=== PATIENT | female | born 2000 | race American Indian/Alaskan Native ===

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

== ENCOUNTER 2022-06-05 21:47 | Emergency (ER) | payer SELFPAY ==
[2022-06-05 22:39] VITALS: BP 113/74
[2022-06-05 23:16] LABS: Hematocrit 35.2 % (30.3-42.9); Hemoglobin 11.8 gm/dl (10.1-14.3); Mean Corpuscular HGB Conc 34 % (30-34); Mean Corpuscular Volume 91 fl (79-97); Platelet Count 265 K/mm3 (140-440); Red Blood Count 3.85 M/mm3 (3.65-5.03); Red Cell Distribution Width 14.2 % (13.2-15.2)
[2022-06-06 00:33] LABS: Color,Urine Yellow (Yellow)
[2022-06-06 00:34] LABS: Bilirubin,Urine Moderate (Negative); Blood,Urine Trace (Negative)
[2022-06-06 00:36] LABS: Ictotest,Urine Negative (Negative)
[2022-06-06 00:38] LABS: Mucus,Urine 3+ /HPF
[2022-06-06 01:53] LABS: Platelet Estimate Consistent w Auto; Total Cells Counted 100
== END 2022-06-05 22:05 | disposition left against medical advice (07) ==
LOC: ED 21:47
DX: O03.9 Complete or unspecified spontaneous abortion without complication (principal); Z53.21 Procedure and treatment not carried out due to patient leaving prior to being seen by health care provider; Z3A.00 Weeks of gestation of pregnancy not specified
CPT/HCPCS: 36415; 81001; 84702; 84703; 85007; 85025; 86900; 86901

== ENCOUNTER 2022-06-06 10:01 | Emergency (ER) | payer OTHER ==
[2022-06-06 14:40] LABS: Alanine Aminotransferase 5 units/L (7-56); Albumin 4.5 g/dL (3.9-5); Blood Urea Nitrogen 5 mg/dL (7-17); Calcium 9.1 mg/dL (8.4-10.2); Hemolysis Index 6
[2022-06-06 14:43] LABS: BUN/Creatinine Ratio 13
[2022-06-06 15:00] LABS: Basophils % (Auto) 0.7 % (0.0-1.8); Eosinophils # (Auto) 0.1 K/mm3 (0.0-0.4); Eosinophils % (Auto) 0.9 % (0.0-4.3); Hematocrit 35.4 % (30.3-42.9); Hemoglobin 12.4 gm/dl (10.1-14.3); Lymphocytes # (Auto) 1.7 K/mm3 (1.2-5.4); Lymphocytes % (Auto) 29.9 % (13.4-35.0); Mean Corpuscular HGB Conc 35 % (30-34); Mean Corpuscular Volume 91 fl (79-97); Monocytes # (Auto) 0.6 K/mm3 (0.0-0.8); Monocytes % (Auto) 10.1 % (0.0-7.3); Platelet Count 271 K/mm3 (140-440); Red Cell Distribution Width 13.9 % (13.2-15.2)
[2022-06-06] MEDS ORDERED: POTASSIUM CHLORIDE ER 20 MEQ TAB PO ONE (15:48)
[2022-06-06 16:27] LABS: INR 1.23 (0.87-1.13)
--- NOTE | 2022-06-06 17:27 | Ultrasound Report ---
ULTRASOUND OBSTETRIC INDICATION / CLINICAL INFORMATION: vaginal spotting. Clinical Gestational Age (GA) in weeks, days: 8, 3 TECHNIQUE: Transabdominal and Transvaginal. COMPARISON: None available. FINDINGS: GESTATIONAL SAC: Well-defined oval shape and intrauterine in location. YOLK SAC: No significant abnormality. EMBRYO/FETUS: pole is identified. - [place]-Rump Length = 0.3 cm = 5, 6 weeks, days - Heart Rate, beats per minute (if present) = 114 There is a moderate subchorionic bleed measuring 3.3 x 2.3 x 1.9 cm. ADNEXA: 2 cm complex cyst in the right ovary likely represents a corpus luteum cyst. Left ovary is un remarkable. FREE FLUID: None. ADDITIONAL FINDINGS: None. IMPRESSION: 1. Single, living intrauterine with estimated sonographic age of 5, 6 weeks, days. 2. There is a moderate subchorionic bleed. Signer Name: Pepe Masters MD Signed: 06/06/2022 5:23 PM Workstation Name: [email or web address]
--- NOTE | 2022-06-06 17:27 | Ultrasound Report ---
ULTRASOUND OBSTETRIC INDICATION / CLINICAL INFORMATION: vaginal spotting. Clinical Gestational Age (GA) in weeks, days: 8, 3 TECHNIQUE: Transabdominal and Transvaginal. COMPARISON: None available. FINDINGS: GESTATIONAL SAC: Well-defined oval shape and intrauterine in location. YOLK SAC: No significant abnormality. EMBRYO/FETUS: pole is identified. - [place]-Rump Length = 0.3 cm = 5, 6 weeks, days - Heart Rate, beats per minute (if present) = 114 There is a moderate subchorionic bleed measuring 3.3 x 2.3 x 1.9 cm. ADNEXA: 2 cm complex cyst in the right ovary likely represents a corpus luteum cyst. Left ovary is un remarkable. FREE FLUID: None. ADDITIONAL FINDINGS: None. IMPRESSION: 1. Single, living intrauterine with estimated sonographic age of 5, 6 weeks, days. 2. There is a moderate subchorionic bleed. Signer Name: Pepe Masters MD Signed: 06/06/2022 5:23 PM Workstation Name: [id number]
--- NOTE | 2022-06-06 17:53 | Emergency Department Report ---
ED HPI - General Chief complaint: Vaginal Bleeding Stated complaint: POSSIBLE MISCARRIAGE Time Seen by Provider: 06/06/22 14:06 Source: patient Mode of arrival: Ambulatory Limitations: No Limitations - History of Present Illness Initial comments: This is a 22-year-old female nontoxic, well nourished in appearance, no acute signs of distress presents to the ED with c/o of vaginal bleeding and pelvic cramping x1 day. Patient stated yesterday she noticed some vaginal bleeding yesterday. Patient denies any abdominal pain. Stated goes about 3 pads in 24 hours. Patient denies any vaginal discharge or foul odor. Patient denies any nausea, vomiting, chest pain, shortness of breathe, fever, chills, headache, stiff neck, numbness, tingling. Patient denies any urinary symptoms. Patient denies any allergies or PMH. MD Complaint: vaginal bleeding -: days(s) Location: pelvis Radiation: none Severity: mild Severity scale (0 -10): 3 Quality: cramping Consistency: intermittent Improves with: none Worsens with: none Associated symptoms: vaginal bleeding. denies: nausea/vomiting, vaginal discharge, abdominal pain, dysuria, headache, vision changes, malaise, dyspa ruenia, rash, seizure, shortness of breath, syncope, weakness Vaginal bleeding: light :: Yes Number of weeks : 6 - Related Data Previous Rx's Medication Instructions Recorded Last Taken Type Doxycycline Hyclate [Doxycycline 100 mg PO Q12HR 10 Days #20 tab 08/02/19 Unknown Rx Hyclate TAB] methylPREDNISolone [Medrol 4MG 4 mg PO DAILY 6 Days #1 tab.ds.pk 08/02/19 Unknown Rx DOSEPAK (21 tabs)] Phenazopyridine [Pyridium] 200 mg PO TID 2 Days #6 tab 08/10/19 Unknown Rx cephALEXin [Keflex] 500 mg PO Q6HR 7 Days #28 capsule 08/10/19 Unknown Rx Allergies Allergy/AdvReac Type Severity Reaction Status Date / Time No Known Allergies Allergy Verified 06/06/22 10:46 ED Review of Systems ROS: Stated complaint: POSSIBLE MISCARRIAGE Other details as noted in HPI Comment: All other systems reviewed and negative Constitutional: denies: chills, fever Eyes: denies: eye pain, eye discharge, vision change ENT: denies: ear pain, throat pain Respiratory: denies: cough, shortness of breath, wheezing Cardiovascular: denies: chest pain, palpitations Endocrine: no symptoms reported Gastrointestinal: denies: abdominal pain, nausea, diarrhea Genitourinary: abnormal menses. denies: urgency, dysuria, discharge Musculoskeletal: denies: back pain, joint swelling, arthralgia Skin: denies: rash, lesions Neurological: denies: headache, weakness, paresthesias Psychiatric: denies: anxiety, depression Hematological/Lymphatic: denies: easy bleeding, easy bruising ED Past Medical Hx - Past Medical History Additional medical history: Childbirth May 28, 2019 - Surgical History Additional Surgical History: - Social History Smoking Status: Never Smoker Substance Use Type: Non Opiate Pain, Other - Medications Home Medications: Home Medications Medication Instructions Recorded Confirmed Last Taken Type Doxycycline Hyclate [Doxycycline 100 mg PO Q12HR 10 Days #20 tab 08/02/19 Unknown Rx Hyclate TAB] methylPREDNISolone [Medrol 4MG 4 mg PO DAILY 6 Days #1 tab.ds.pk 08/02/19 Unknown Rx DOSEPAK (21 tabs)] Phenazopyridine [Pyridium] 200 mg PO TID 2 Days #6 tab 08/10/19 Unknown Rx cephALEXin [Keflex] 500 mg PO Q6HR 7 Days #28 capsule 08/10/19 Unknown Rx ED Physical Exam - General Limitations: No Limitations General appearance: alert, in no apparent distress - Head Head exam: Present: atraumatic, normocephalic - Eye Eye exam: Present: normal appearance - Neck Neck exam: Present: normal inspection, full ROM. Absent: lymphadenopathy - Respiratory Respiratory exam: Present: normal lung sounds bilaterally. Absent: respiratory distress, wheezes, rales, rhonchi, stridor, chest wall tenderness, accessory muscle use, decreased breath sounds, prolonged expiratory - Cardiovascular Cardiovascular Exam: Present: regular rate, normal rhythm, normal heart sounds. Absent: bradycardia, tachycardia, irregular rhythm, systolic murmur, diastolic murmur, rubs, gallop - GI/Abdominal GI/Abdominal exam: Present: soft, normal bowel sounds. Absent: distended, tenderness, guarding, rebound, rigid, diminished bowel sounds - Extremities Exam Extremities exam: Present: full ROM - Back Exam Back exam: Present: normal inspection, full ROM. Absent: tenderness, CVA tenderness (R), CVA tenderness (L), muscle spasm, paraspinal tenderness, vertebral tenderness, rash noted - Neurological Exam Neurological exam: Present: alert, oriented X3, normal gait - Psychiatric Psychiatric exam: Present: normal affect, normal mood - Skin Skin exam: Present: warm, dry, intact, normal color. Absent: rash ED Course Vital Signs 06/06/22 06/06/22 10:42 17:45 Temperature 98.5 F 97.1 F L Pulse Rate 98 H 67 Respiratory 20 16 Rate Blood Pressure 121/81 114/78 [Left] O2 Sat by Pulse 100 100 Oximetry - Reevaluation(s) Reevaluation #1: 06/06/22 17:51 Patient is speaking in full sentences with no signs of distress noted. ED Medical Decision Making - Lab Data Result diagrams: 06/06/22 13:29 06/06/22 13:29 Lab Results 06/06/22 06/06/22 06/06/22 Range/Units 13:29 13:29 13:29 WBC 5.6 (4.5-11.0) K/mm3 RBC 3.90 (3.65-5.03) M/mm3 Hgb 12.4 (10.1-14.3) gm/dl Hct 35.4 (30.3-42.9) % MCV 91 (79-97) fl MCH 32 (28-32) pg MCHC 35 H (30-34) % RDW 13.9 (13.2-15.2) % Plt Count 271 (140-440) K/mm3 Lymph % (Auto) 29.9 (13.4-35.0) % [place] % (Auto) 10.1 H (0.0-7.3) % Eos % (Auto) 0.9 (0.0-4.3) % Baso % (Auto) 0.7 (0.0-1.8) % Lymph # (Auto) 1.7 (1.2-5.4) K/mm3 [place] # (Auto) 0.6 (0.0-0.8) K/mm3 Eos # (Auto) 0.1 (0.0-0.4) K/mm3 Baso # (Auto) 0.0 (0.0-0.1) K/mm3 Seg Neutrophils % 58.4 (40.0-70.0) % Seg Neutrophils # 3.3 (1.8-7.7) K/mm3 PT (12.2-14.9) Sec. INR (0.87-1.13) APTT (24.2-36.6) Sec. Sodium 140 (137-145) mmol/L Potassium 3.3 L (3.6-5.0) mmol/L Chloride 105.7 (98-107) mmol/L Carbon Dioxide 21 L (22-30) mmol/L Anion Gap 17 mmol/L BUN 5 L (7-17) mg/dL Creatinine 0.4 L (0.6-1.2) mg/dL Estimated GFR > 60 ml/min BUN/Creatinine Ratio 13 % Glucose 80 (65-100) mg/dL Calcium 9.1 (8.4-10.2) mg/dL Total Bilirubin 0.70 (0.1-1.2) mg/dL AST 10 (5-40) units/L ALT 5 L (7-56) units/L Alkaline Phosphatase 53 (35-129) units/L Total Protein 7.8 (6.3-8.2) g/dL Albumin 4.5 (3.9-5) g/dL Albumin/Globulin Ratio 1.4 % HCG, Quant 30062 H (0-4) mIU/mL Urine Color (Yellow) Urine Turbidity (Clear) Urine pH (5.0-7.0) Ur Specific [place] (1.003-1.030) Urine Protein (Negative) mg/dL Urine Glucose (UA) (Negative) mg/dL Urine Ketones (Negative) mg/dL Urine Blood (Negative) Urine Nitrite (Negative) Ur Reducing Substances Urine Bilirubin (Negative) Urine Ictotest Urine Urobilinogen (<2.0) mg/dL Ur Leukocyte Esterase (Negative) Urine WBC (Auto) (0.0-6.0) /HPF Urine RBC (Auto) (0.0-6.0) /HPF U Epithel Cells (Auto) (0-13.0) /HPF Urine Bacteria (Auto) (Negative) /HPF Urine Mucus /HPF Blood Type 06/06/22 06/06/22 06/06/22 Range/Units 15:09 15:09 16:59 WBC (4.5-11.0) K/mm3 RBC (3.65-5.03) M/mm3 Hgb (10.1-14.3) gm/dl Hct (30.3-42.9) % MCV (79-97) fl MCH (28-32) pg MCHC (30-34) % RDW (13.2-15.2) % Plt Count (140-440) K/mm3 Lymph % (Auto) (13.4-35.0) % [place] % (Auto) (0.0-7.3) % Eos % (Auto) (0.0-4.3) % Baso % (Auto) (0.0-1.8) % Lymph # (Auto) (1.2-5.4) K/mm3 [place] # (Auto) (0.0-0.8) K/mm3 Eos # (Auto) (0.0-0.4) K/mm3 Baso # (Auto) (0.0-0.1) K/mm3 Seg Neutrophils % (40.0-70.0) % Seg Neutrophils # (1.8-7.7) K/mm3 PT 17.3 H (12.2-14.9) Sec. INR 1.23 H (0.87-1.13) APTT 32.0 (24.2-36.6) Sec. Sodium (137-145) mmol/L Potassium (3.6-5.0) mmol/L Chloride (98-107) mmol/L Carbon Dioxide (22-30) mmol/L Anion Gap mmol/L BUN (7-17) mg/dL Creatinine (0.6-1.2) mg/dL Estimated GFR ml/min BUN/Creatinine Ratio % Glucose (65-100) mg/dL Calcium (8.4-10.2) mg/dL Total Bilirubin (0.1-1.2) mg/dL AST (5-40) units/L ALT (7-56) units/L Alkaline Phosphatase (35-129) units/L Total Protein (6.3-8.2) g/dL Albumin (3.9-5) g/dL Albumin/Globulin Ratio % HCG, Quant (0-4) mIU/mL Urine Color Yellow (Yellow) Urine Turbidity Clear (Clear) Urine pH 7.0 (5.0-7.0) Ur Specific [place] 1.010 (1.003-1.030) Urine Protein 30 mg/dl (Negative) mg/dL Urine Glucose (UA) Negative (Negative) mg/dL Urine Ketones 25 (Negative) mg/dL Urine Blood Moderate A (Negative) Urine Nitrite Negative (Negative) Ur Reducing Substances Not Reportable Urine Bilirubin Negative (Negative) Urine Ictotest Not Reportable Urine Urobilinogen 2.0 (<2.0) mg/dL Ur Leukocyte Esterase Negative (Negative) Urine WBC (Auto) 3.0 (0.0-6.0) /HPF Urine RBC (Auto) 1.0 (0.0-6.0) /HPF U Epithel Cells (Auto) 8.0 (0-13.0) /HPF Urine Bacteria (Auto) 1+ (Negative) /HPF Urine Mucus Few /HPF Blood Type A POSITIVE - Radiology Data [facility] [address] [place] [address] Ultrasound Report Signed Patient: VICKI BOLES MR #: [id number] : 2000 Acct:[id number] Age/Sex: 22 / F ADM Date: 06/06/22 Loc: ED Attending Dr: Ordering Physician: NESS SHERWOOD NP Date of Service: 06/06/22 Procedure(s): US OB <= 14 weeks fetus Accession Number(s): [id number] cc: NESS SHERWOOD NP ULTRASOUND OBSTETRIC INDICATION / CLINICAL INFORMATION: vaginal spotting. Clinical Gestational Age (GA) in weeks, days: 8, 3 TECHNIQUE: Transabdominal and Transvaginal. COMPARISON: None available. FINDINGS: GESTATIONAL SAC: Well-defined oval shape and intrauterine in location. YOLK SAC: No significant abnormality. EMBRYO/FETUS: pole is identified. - [place] Length = 0.3 cm = 5, 6 weeks, days - Heart Rate, beats per minute (if present) = 114 There is a moderate subchorionic bleed measuring 3.3 x 2.3 x 1.9 cm. ADNEXA: 2 cm complex cyst in the right ovary likely represents a corpus luteum cyst. Left ovary is unremarkable. FREE FLUID: None. ADDITIONAL FINDINGS: None. IMPRESSION: 1. Single, living intrauterine with estimated sonographic age of 5, 6 weeks, days. 2. There is a moderate subchorionic bleed. Signer Name: Pepe Masters MD Signed: 06/06/2022 5:23 PM Workstation Name: [email or web address] Transcribed By: Dictated By: Pepe Masters MD Electronically Authenticated By: Pepe Masters MD Signed Date/Time: 06/06/221722 DD/ 19 TD/TT: - Medical Decision Making This is a 22-year-old female presents with threatened miscarriage. Patient is stable and was examined by me. Patient received potassium p.o. for h yperkalemia. Normal abdominal exam. US OB obtained and dictated by the radiologist. Ua obtained. Quantative serum test obtained. Patient notified of the US report with no questions noted by the patient. Patient was instructed f/u with [facility] in 3-5 days. RH factor positive. Labs within normal limits. At time of discharge, the patient does not seem toxic or ill in appearance. No acute signs of distress noted. Patient agrees to discharge treatment plan of care. No further questions noted by the patient. Critical care attestation.: If time is entered above; I have spent that time in minutes in the direct care of this critically ill patient, excluding procedure time. ED Disposition Clinical Impression: Threatened miscarriage, Hypokalemia Disposition: 01 HOME / SELF CARE / HOMELESS Is pt being admited?: No Does the pt Need Aspirin: No Condition: Stable Instructions: Threatened Miscarriage, Hypokalemia, Potassium Content of Foods Additional Instructions: Follow-up with a [facility] doctor in 3-5 days or if symptoms worsen and continue return to emergency room as soon as possible. Referrals: [facility] [Primary Care Provider] - 3-5 Days [facility] [Provider Group] - 3-5 Days [facility] [Provider Group] - 3-5 Days Forms: Work/School Release Form(ED) Time of Disposition: 19:10
[2022-06-06 17:57] VITALS: BP 114/78
[2022-06-06 18:58] LABS: Bacteria,Urine 1+ /HPF (Negative); Mucus,Urine FEW /HPF
[2022-06-06 19:00] LABS: Bilirubin,Urine Negative (Negative); Color,Urine Yellow (Yellow)
[2022-06-06 19:01] LABS: Blood,Urine Moderate (Negative)
== END 2022-06-06 18:00 | disposition home or self-care (01) ==
LOC: ED 10:01
DX: O20.0 Threatened abortion (principal); E87.6 Hypokalemia; Z3A.01 Less than 8 weeks gestation of pregnancy; Z79.899 Other long term (current) drug therapy
CPT/HCPCS: 36415; 76801; 76817; 80053; 81001; 84702; 85025; 85610; 85730; 86900; 86901; 99284